=== PATIENT | male | born 1980 | race Caucasian/White ===

== ENCOUNTER 2017-06-16 09:02 | Emergency (ER) | payer MEDICAID ==
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
[2017-06-16] MEDS ORDERED: Triple Antibiotic 0.94 gm Pkt TP ONE (10:22)
[2017-06-16] MEDS ORDERED: Triple Antibiotic 0.94 gm Pkt TP STA (10:33)
== END 2017-06-16 10:30 | disposition home or self-care (01) ==
LOC: ER 09:02
DX: S01.111A Laceration without foreign body of right eyelid and periocular area, initial encounter (principal); Y08.89XA Assault by other specified means, initial encounter; Y93.89 Activity, other specified; Y92.89 Other specified places as the place of occurrence of the external cause; Y99.8 Other external cause status
CPT/HCPCS: A4217; Z7502; Z7610